=== PATIENT | male | born 1970 | race Caucasian/White ===

== ENCOUNTER 2021-03-30 21:09 | Emergency (ER) | payer BC, MEDICARE ==
[~2021-03-30 21:09] MED LIST: LODINE CAP 300300 MG PO; MEDROL4 MG PO; NORFLEX 100 MG100 MG PO; PREDNISONE20 MG PO
[2021-03-30 22:46] LABS: HEMOGLOBIN 16.1 gm/dl (14.0-17.5); RED BLOOD COUNT 5.65 M/UL (4.20-5.50); WHITE BLOOD COUNT 6.1 K/UL (4.5-11.0)
[2021-03-30 23:54] LABS: BUN/CREATININE RATIO 14 (0-10)
[2021-03-31] MEDS ORDERED: ZOFRAN ODT 4 MG4 MG PO (03:18)
[2021-03-31] MEDS ORDERED: LODINE CAP 300300 MG PO (03:18)
[2021-03-31] MEDS ORDERED: BENZONATATE100 MG PO (03:18)
== END 2021-03-31 03:20 | disposition home or self-care (01) ==
LOC: ER1 21:09
PROVIDERS: Physician Assistant
DX: U07.1 COVID-19 (principal); R09.1 Pleurisy; E11.9 Type 2 diabetes mellitus without complications; Z79.84 Long term (current) use of oral hypoglycemic drugs; I10 Essential (primary) hypertension; Z88.4 Allergy status to anesthetic agent
CPT/HCPCS: 71045; 80053; 82550; 82553; 83874; 83880; 84484; 85025; 99283